=== PATIENT | female | born 1980 | race African-American/Black ===

== ENCOUNTER 2018-10-30 10:50 | Emergency (ER) | payer MEDICAID ==
[~2018-10-30] VITALS: Ht 160 cm; Wt 61.2 kg
[~2018-10-30 10:50] MED LIST: PHEN100C4 PO
[2018-10-30] MEDS ORDERED: KETOROLAC 30MG/ML VIAL IM ONE (11:45)
[2018-10-30 11:55] VITALS: BP 124/85
== END 2018-10-30 14:04 | disposition home or self-care (01) ==
LOC: ER 10:50
DX: S20.212A Contusion of left front wall of thorax, initial encounter (principal); S80.12XA Contusion of left lower leg, initial encounter; M54.2 Cervicalgia; M79.672 Pain in left foot; R03.0 Elevated blood-pressure reading, without diagnosis of hypertension; V49.59XA Passenger injured in collision with other motor vehicles in traffic accident, initial encounter; Y93.89 Activity, other specified; Y92.410 Unspecified street and highway as the place of occurrence of the external cause
CPT/HCPCS: 71045; 73502; 73590; 81025; 96372; 99283; J1885